=== PATIENT | female | born 1940 | race Caucasian/White ===

== ENCOUNTER 2018-11-07 14:09 | Emergency (ER) | payer OTHER, MEDICARE ==
[~2018-11-07] VITALS: Ht 152.4 cm; Wt 76.7 kg
[2018-11-07 15:20] LABS: URINE BILIRUBIN NEGATIVE (Negative); URINE BLOOD NEGATIVE (Negative); URINE CLARITY CLEAR; URINE COLOR YELLOW; URINE GLUCOSE-RANDOM* NEGATIVE (Negative); URINE KETONES NEGATIVE (Negative); URINE NITRITE-REFLEX NEGATIVE (Negative); URINE PROTEIN (DIPSTICK) NEGATIVE (Negative); URINE SPECIFIC GRAVITY <= 1.005 (1.005-1.035); URINE UROBILINOGEN 0.2 E.U./dl (0.2-1.0)
[2018-11-07 15:21] LABS: URINE LEUKOCYTES-REFLEX 1+ (Negative)
[2018-11-07 15:47] LABS: ABSOLUTE NEUTROPHILS 8.1 thou/uL (1.4-8.2); BASOPHILS 0.4 % (0.0-2.0); EOSINOPHILS 1.7 % (0.0-3.0); HEMATOCRIT 40.2 % (37.0-47.0); HEMOGLOBIN 13.5 gm/dL (12.0-15.0); LYMPHOCYTES 16.9 % (24.0-44.0); MCH 29.9 pg (26.0-34.0); MCHC 33.6 g/dL (28.0-37.0); MCV 89.1 fL (80.0-100.0); MONOCYTES 8.8 % (1.0-8.0); PLATELET COUNT 256 thou/uL (150-400); POLYS 72.2 % (36.0-66.0); RBC 4.51 mil/uL (4.20-5.00); RDW 14.8 % (10.5-14.5); WBC 11.2 thou/uL (4.0-11.0)
[2018-11-07 15:47] LABS: SQUAMOUS 0-3 Few /LPF (0-3); URINE RBC None Seen /HPF (0-2); URINE WBC-REFLEX 6-15 Few /HPF (0-5)
[2018-11-07 15:48] LABS: BACTERIA-REFLEX None Seen /HPF (None Seen); CASTS None Seen /LPF (None Seen); CRYSTALS None Seen /LPF (None Seen)
[2018-11-07 15:56] LABS: CALCIUM 9.7 mg/dL (8.5-10.1); CREATININE 0.8 mg/dL (0.6-1.0); POTASSIUM 4.6 mmol/L (3.5-5.1)
[2018-11-07 16:01] LABS: ALBUMIN 3.7 g/dL (3.4-5.0); TOTAL BILIRUBIN 0.4 mg/dL (<0.1-1.0); TOTAL PROTEIN 7.8 g/dL (6.4-8.2)
[2018-11-07] MEDS ORDERED: MACROBID 100 M100 M1 PO (18:24)
[2018-11-07] MEDS ORDERED: ZOFRAN 4 MG ORAL4 MG PO (18:24)
[2018-11-07 18:30] VITALS: BP 195/101
== END 2018-11-07 19:20 | disposition home or self-care (01) ==
LOC: ER 14:09
PROVIDERS: Emergency Medicine
DX: N12 Tubulo-interstitial nephritis, not specified as acute or chronic (principal); J45.909 Unspecified asthma, uncomplicated; M19.90 Unspecified osteoarthritis, unspecified site; G43.909 Migraine, unspecified, not intractable, without status migrainosus; Z90.710 Acquired absence of both cervix and uterus; Z88.1 Allergy status to other antibiotic agents; Z91.041 Radiographic dye allergy status

== ENCOUNTER 2018-12-13 09:44 | Emergency (ER) | payer OTHER, MEDICARE ==
[~2018-12-13] VITALS: Ht 152.4 cm; Wt 75.8 kg
[~2018-12-13 09:44] MED LIST: MACROBID 100 M100 M1 PO; ZOFRAN 4 MG ORAL4 MG PO
[2018-12-13] MEDS ORDERED: VESICARE10 M1 PO (10:17)
[2018-12-13] MEDS ORDERED: ACCUNEB SO1.25 MG/1 INH (10:17)
[2018-12-13] MEDS ORDERED: ASPIR 8181 MG PO (10:17)
[2018-12-13] MEDS ORDERED: BIOTIN1 M1 PO (10:17)
[2018-12-13 11:15] VITALS: BP 187/74
== END 2018-12-13 11:25 | disposition home or self-care (01) ==
LOC: ER 09:44
DX: S00.83XA Contusion of other part of head, initial encounter (principal); S80.211A Abrasion, right knee, initial encounter; S60.511A Abrasion of right hand, initial encounter; M19.90 Unspecified osteoarthritis, unspecified site; G43.909 Migraine, unspecified, not intractable, without status migrainosus; J45.909 Unspecified asthma, uncomplicated; Z88.1 Allergy status to other antibiotic agents; Z88.8 Allergy status to other drugs, medicaments and biological substances; Z91.041 Radiographic dye allergy status; W01.0XXA Fall on same level from slipping, tripping and stumbling without subsequent striking against object, initial encounter; Y93.01 Activity, walking, marching and hiking; Y92.89 Other specified places as the place of occurrence of the external cause; Y99.8 Other external cause status